=== PATIENT | male | born 1950 | race Caucasian/White ===

== ENCOUNTER 2016-12-31 22:26 | Observation (INO) | payer OTHER ==
[~2016-12-31] VITALS: Ht 170.2 cm; Wt 101.0 kg
[2016-12-31 22:28] VITALS: BP 172/80; PULSE 61; RESP 16; TEMP 97.7; O2SAT 99
[2016-12-31] MEDS ORDERED: ASPI-110 PO (22:53)
[2016-12-31] MEDS ORDERED: CHOL100025 CHEW (22:53)
[2016-12-31] MEDS ORDERED: LEXA10TA PO (22:53)
[2016-12-31] MEDS ORDERED: LOSA100T PO (22:53)
[2016-12-31] MEDS ORDERED: CARV3.12 PO (22:53)
[2016-12-31] MEDS ORDERED: FERR1TAB7 PO (22:53)
[2016-12-31 23:00] VITALS: BP 172/81; PULSE 48; RESP 18; O2SAT 95
[2016-12-31 23:01] VITALS: O2SAT 95
[2016-12-31 23:18] LABS: AUTOMATED NEUTROPHIL # 3.7 TH/MM3 (1.8-7.7); BASOPHIL % 0.7 % (0.0-2.0); EOSINOPHIL # 0.3 TH/MM3 (0-0.4); EOSINOPHIL % 4.1 % (0.0-4.0); HEMATOCRIT 39.9 % (39.0-51.0); HEMO FLAGS DIFF FINAL; LYMPH % 28.1 % (9.0-44.0); LYMPHOCYTE # 1.8 TH/MM3 (1.0-4.8); MEAN CELL VOLUME 87.8 FL (80.0-100.0); MONO % 10.3 % (0.0-8.0); NEUT % 56.8 % (16.0-70.0); PLATELET COUNT 168 TH/MM3 (150-450); RED BLOOD COUNT 4.54 MIL/MM3 (4.50-5.90); RED CELL DISTRIBUTION WIDTH 14.3 % (11.6-17.2); WHITE BLOOD COUNT 6.5 TH/MM3 (4.0-11.0)
[2016-12-31 23:23] LABS: APTT (PATIENT) 30.3 SEC (24.3-30.1); PROTHROMBIN TIME - PATIENT 10.6 SEC (9.8-11.6)
[2016-12-31 23:26] LABS: ANION GAP 8 MEQ/L (5-15); AST (GOT) 25 U/L (15-37); BICARBONATE 29.7 MEQ/L (21.0-32.0); BLOOD UREA NITROGEN 16 MG/DL (7-18); CHLORIDE 103 MEQ/L (98-107); GLOMERULAR FILTRATION RATE 47 ML/MIN (>89); SODIUM (NA) 141 MEQ/L (136-145)
[2016-12-31 23:29] LABS: ALKALINE PHOSPHATASE 65 U/L (45-117); ALT (GPT) 62 U/L (12-78); TOTAL BILIRUBIN ADULT 0.3 MG/DL (0.2-1.0)
--- NOTE | 2016-12-31 23:59 | PD ---
HPI Chief Complaint: Numbness/Tingling Time Seen by Provider: 22:41 Travel History International Travel<30 days: No Contact w/Intl Traveler<30days: No Traveled to known affect area: No History of Present Illness HPI Patient is a 66-year-old male who presents to emergency room with complaints of right-sided facial numbness, tingling as well as right-sided facial droop and right eye lid lag. Patient reports that he woke up this morning around 9:30AM with these symptoms. Reports that he has never had these symptoms in the past, denies history of CVA or TIA in the past. Patient reports that the symptoms persisted throughout the day, patient here for evaluation of his neurological symptoms. Patient denies any tick bites recently. Patient denies any vision changes, chest pain or shortness of breath. Patient denies any headaches or dizziness this time. PFSH Past Medical History Hx Anticoagulant Therapy: Yes (ASA) AAA: Yes Anxiety: Yes Cardiovascular Problems: Yes (AAA) Past Surgical History Genitourinary Surgery: Yes (right kidney removed - cancer) Social History Alcohol Use: No Tobacco Use: No Substance Use: No Allergies-Medications (Allergen,Severity, Reaction): Coded Allergies: No Known Allergies (Unverified , 12/31/16) Reported Meds & Prescriptions Reported Meds & Active Scripts Active Reported Iron (Ferrous Sulfate) 45 Mg Tab 45 Mg PO DAILY Aspirin 81 (Aspirin) 81 Mg Tabdr 81 Mg PO DAILY Vitamin D3 (Cholecalciferol) 1,000 Unit Chew 1,000 Units CHEW DAILY Lexapro (Escitalopram Oxalate) 10 Mg Tab 10 Mg PO DAILY Losartan (Losartan Potassium) 100 Mg Tab 100 Mg PO DAILY Carvedilol 3.125 Mg Tab 3.125 Mg PO BID Review of Systems General / Constitutional: No: Fever Eyes: No: Visual changes HENT: No: Headaches Cardiovascular: No: Chest Pain or Discomfort Respiratory: No: Shortness of Breath Gastrointestinal: No: Abdominal Pain Genitourinary: No: Dysuria Musculoskeletal: No: Pain Skin: No Rash Neurologic: Positive: Paresthesia, Sensory Disturbance, No: Weakness, Headache Psychiatric: No: Depression Endocrine: No: Polydipsia Hematologic/Lymphatic: No: Easy Bruising Physical Exam Narrative GENERAL: No acute distress, nontoxic SKIN: Warm and dry. HEAD: Atraumatic. Normocephalic. EYES: Pupils equal and round. No scleral icterus. No injection or drainage. Patient with right-sided lid lag, patient is able to close his eyelid ENT: No nasal bleeding or discharge. Mucous membranes pink and moist. Patient with a right-sided facial droop NECK: Trachea midline. No JVD. CARDIOVASCULAR: Regular rate and rhythm. No murmur appreciated. RESPIRATORY: No accessory muscle use. Clear to auscultation. Breath sounds equal bilaterally. GASTROINTESTINAL: Abdomen soft, non-tender, nondistended. Hepatic and splenic margins not palpable. MUSCULOSKELETAL: No obvious deformities. No clubbing. No cyanosis. No edema. NEUROLOGICAL: Awake and alert. Motor grossly within normal limits. Normal speech. Patient with right-sided facial droop, right-sided lid lag and right sided numbness to his face PSYCHIATRIC: Appropriate mood and affect; insight and judgment normal. Data Data Last Documented VS Vital Signs Date Time Temp Pulse Resp B/P Pulse Ox O2 Delivery O2 Flow Rate FiO2 12/31/16 23:01 95 Room Air 12/31/16 23:00 48 18 172/81 12/31/16 22:28 97.7 Orders Electrocardiogram (12/31/16 22:48) Prothrombin Time / Inr (Pt) (12/31/16 22:48) Act Partial Throm Time (Ptt) (12/31/16 22:48) Complete Blood Count With Diff (12/31/16 22:48) Comprehensive Metabolic Panel (12/31/16 22:48) Ct Brain W/O Iv Contrast(Rout) (12/31/16 22:48) Iv Access Insert/Monitor (12/31/16 22:48) Ecg Monitoring (12/31/16 22:48) Oximetry (12/31/16 22:48) Lyme Disease Pcr (01/01/17 00:15) Aspirin (Aspirin) (01/01/17 01:00) Labs Laboratory Tests Test 12/31/16 23:00 White Blood Count 6.5 TH/MM3 Red Blood Count 4.54 MIL/MM3 Hemoglobin 13.2 GM/DL Hematocrit 39.9 % Mean Corpuscular Volume 87.8 FL Mean Corpuscular Hemoglobin 29.0 PG Mean Corpuscular Hemoglobin 33.0 % Concent Red Cell Distribution Width 14.3 % Platelet Count 168 TH/MM3 Mean Platelet Volume 9.0 FL Neutrophils (%) (Auto) 56.8 % Lymphocytes (%) (Auto) 28.1 % Monocytes (%) (Auto) 10.3 % Eosinophils (%) (Auto) 4.1 % Basophils (%) (Auto) 0.7 % Neutrophils # (Auto) 3.7 TH/MM3 Lymphocytes # (Auto) 1.8 TH/MM3 Monocytes # (Auto) 0.7 TH/MM3 Eosinophils # (Auto) 0.3 TH/MM3 Basophils # (Auto) 0.0 TH/MM3 CBC Comment DIFF FINAL Differential Comment Prothrombin Time 10.6 SEC Prothromb Time International 1.0 RATIO Ratio Activated Partial 30.3 SEC Thromboplast Time Sodium Level 141 MEQ/L Potassium Level 4.0 MEQ/L Chloride Level 103 MEQ/L Carbon Dioxide Level 29.7 MEQ/L Anion Gap 8 MEQ/L Blood Urea Nitrogen 16 MG/DL Creatinine 1.49 MG/DL Estimat Glomerular Filtration 47 ML/MIN Rate Random Glucose 95 MG/DL Calcium Level 8.9 MG/DL Total Bilirubin 0.3 MG/DL Aspartate Amino Transf 25 U/L (AST/SGOT) Alanine Aminotransferase 62 U/L (ALT/SGPT) Alkaline Phosphatase 65 U/L Total Protein 7.0 GM/DL Albumin 3.5 GM/DL MDM Medical Decision Making Medical Screen Exam Complete: Yes Emergency Medical Condition: Yes Interpretation(s) EKG at 2242: Sinus bradycardia at 49 bpm, QT/QTc 423/393, first-degree AV block , no acute ST-T wave changes Vital Signs Date Time Temp Pulse Resp B/P Pulse Ox O2 Delivery O2 Flow Rate FiO2 12/31/16 23:01 95 Room Air 12/31/16 23:00 48 18 172/81 95 Room Air 12/31/16 22:47 95 Room Air 12/31/16 22:28 97.7 61 16 172/80 99 Room Air Differential Diagnosis CVA, Rivas's palsy, intracranial hemorrhage Narrative Course Patient is a 66-year-old male who presents to emergency room with complaints of right-sided facial droop, right-sided lip leg and right sided facial numbness which he noticed upon waking up this morning around 9:30 AM. Patient reports that his symptoms have not improved but the daytime, patient concerned for possible CVA. The head ordered, labs ordered, EKG ordered. Patient was placed on a protective signal superintendent. Patient is having no problems recalling the right side of his forehead, no problems racing his right eyebrow, patient does have some right-sided lid lag and right-sided facial droop -the symptoms could be secondary to Rivas's palsy versus CVA. Plan to obs for repeat neuro exams case reviewed with dr bermudez who accepts pt to service Diagnosis Primary Impression: cva vs bells palsy Admitting Information Admitting Physician Requests: Observation Tasha Bruno DO Dec 31, 2016 23:59
--- NOTE | 2017-01-01 00:37 | RADRPT ---
EXAM DATE/TIME: 01/01/2017 00:07 [facility] COMPARISON: No previous studies available for comparison. INDICATIONS : Cephalgia with pain all over body. Evaluate cerebrovascular accident. RADIATION DOSE: 56.35 CTDIvol (mGy) MEDICAL HISTORY : Cardiovascular disease. SURGICAL HISTORY : None. ENCOUNTER: Initial ACUITY: 1 day PAIN SCALE: 5/10 LOCATION: cranial TECHNIQUE: Multiple contiguous axial images were obtained of the head. Using automated exposure control and adj ustment of the mA and/or kV according to patient size, radiation dose was kept as low as reasonably a chievable to obtain optimal diagnostic quality images. FINDINGS: CEREBRUM: The ventricles are normal for age. No evidence of midline shift, mass lesion, hemorrhage or acute in farction. No extra-axial fluid collections are seen. POSTERIOR FOSSA: The cerebellum and brainstem are intact. The 4th ventricle is midline. The cerebellopontine angle i s unremarkable. EXTRACRANIAL: The visualized portion of the orbits is intact. SKULL: The calvaria is intact. No evidence of skull fracture. CONCLUSION: Normal examination for a patient of this age. Asim Ross MD on January 01, 2017 at 0:34 Board Certified Radiologist. This report was verified electronically.
[2017-01-01] MEDS ORDERED: ASPIRIN 325 MG TAB PO ONE (01:00)
[2017-01-01] MEDS ORDERED: SODIUM CHLORIDE 0.9% FLUSH 5 ML FLUSH IVF PRN (01:15)
[2017-01-01] MEDS ORDERED: DEXTROSE 50% IN WATER 50 ML VIAL(D50) IV PUSH PRN (01:15)
[2017-01-01] MEDS ORDERED: GLUCAGON 1 MG/ML VIAL IM/SQ PRN (01:15)
[2017-01-01] MEDS ORDERED: predniSONE 20 MG TAB PO ONE (01:15)
[2017-01-01 03:24] VITALS: BP 131/68; PULSE 51; TEMP 98.1; O2SAT 93
[2017-01-01 03:59] VITALS: PULSE 61
[2017-01-01 07:50] VITALS: O2SAT 95
[2017-01-01 08:14] VITALS: BP 132/81; PULSE 54; RESP 20; TEMP 97; O2SAT 65
[2017-01-01 08:24] VITALS: PULSE 49
[2017-01-01] MEDS ORDERED: ENOXAPARIN SODIUM 40 MG/0.4 ML SYRINGE SQ SCH (09:00)
[2017-01-01] MEDS ORDERED: ESCITALOPRAM OXALATE 10 MG TAB PO SCH (09:00)
[2017-01-01] MEDS ORDERED: SODIUM CHLORIDE 0.9% FLUSH 5 ML FLUSH IVF SCH (09:00)
[2017-01-01] MEDS ORDERED: ASPIRIN EC 81 MG TABEC PO SCH ×2 (09:00)
--- NOTE | 2017-01-01 09:05 | HHI.HP ---
[facility] Non[facility]Staff Admission Diagnosis CVA vs Rivas's Palsy Diagnoses: Chief Complaint: right facial paresthesia/droop Travel History International Travel<30 Days: No Contact w/Intl Traveler <30 Da: No Traveled to Known Affected Are: No History of Present Illness 58-year-old male with history of chronic thoracic aortic aneurysm, hypertension , depression, prior right nephrectomy, presents with acute onset of right facial droop/numbness yesterday morning 12/31 at 9:30 AM. The patient states he has been in his normal state of health. Denies any recent headache, lightheadedness, dizziness, fever/chills,cough, sore throat, chest pain, shortness breath, or abdominal complaints.yesterday morning he noticed his entire right side of the face felt numb and tingling, then noticed he was unable to raise his right eyebrow and his smile is uneven. Denies any paresthesias or weakness of the extremities. He was able to ambulate without difficulty.this has never happened before. He denies any recent insect bites. He does have a history of herpes zoster of the forehead 10+ years ago. His son currently has shingles however he has not had contact with him recently. The patient also did have some right sided dental work done in November 2016, with dental extraction secondary to crown failure, but denies any infection. Since the patient's arrival to the ER, head CT was unremarkable, right sided facial numbness/tingling improved however still with right sided facial droop. Review of Systems Except as stated in HPI: all other systems reviewed are Neg Past Family Social History Past Medical History Thoracic aortic aneurysm ~4cm, stable over the past 6 years Hypertension Depression Herpes Zoster of the face 10+years ago Past Surgical History Right nephrectomy secondary to localized cancer, removed 3 or 4 years ago Right biceps rupture s/p repair 2016 Dental extraction Nov 2016 Reported Medications Iron (Ferrous Sulfate) 45 Mg Tab 45 Mg PO DAILY Aspirin 81 (Aspirin) 81 Mg Tabdr 81 Mg PO DAILY Vitamin D3 (Cholecalciferol) 1,000 Unit Chew 1,000 Units CHEW DAILY Lexapro (Escitalopram Oxalate) 10 Mg Tab 10 Mg PO DAILY Losartan (Losartan Potassium) 100 Mg Tab 100 Mg PO DAILY Carvedilol 3.125 Mg Tab 3.125 Mg PO BID Allergies: Coded Allergies: No Known Allergies (Unverified , 12/31/16) Active Ordered Medications Current Medications Medications (Trade) Dose Ordered Sig/Hamlet Route Start Time Stop Time Status Last Admin (NS Flush) 2 ml BID IVF 01/01/17 09:00 01/01/17 01:27 (NS Flush) 2 ml UNSCH PRN IVF 01/01/17 01:15 (D50w (Vial) Inj) 25 ml UNSCH PRN IV PUSH 01/01/17 01:15 (Glucagon Inj) 1 mg UNSCH PRN IM/SQ 01/01/17 01:15 (Lovenox Inj) 40 mg Q24H SQ 01/01/17 09:00 (Lexapro) 10 mg DAILY PO 01/01/17 09:00 (Ecotrin Ec) 325 mg DAILY PO 01/01/17 09:00 Family History Mother fairly healthy, alive, age 88 Father with kidney cancer, thoracic aneurysm Siblings fairly healthy Denies any significant family history of stroke, diabetes, or heart disease Social History Prior tobacco use, quit in the early 30s Drinks occasional beer, maybe 1-2x per month Denies any illicit drug use Physical Exam Vital Signs Vital Signs Date Time Temp Pulse Resp B/P Pulse Ox O2 Delivery O2 Flow Rate FiO2 01/01/17 08:14 97.0 54 20 132/81 65 01/01/17 07:50 95 21 01/01/17 03:59 61 01/01/17 03:24 98.1 51 131/68 93 12/31/16 23:01 95 Room Air 12/31/16 23:00 48 18 172/81 95 Room Air 12/31/16 22:47 95 Room Air 12/31/16 22:28 97.7 61 16 172/80 99 Room Air Physical Exam GENERAL: Well-nourished, well-developed pleasant male patient in NAD. SKIN: Warm and dry. No rash. HEAD: Normocephalic. Atraumatic. EYES: Pupils equal and round. No scleral icterus. No injection or drainage. ENT: No nasal bleeding or discharge. Mucous membranes pink and moist. NECK: Supple. Trachea midline. CARDIOVASCULAR: Regular rate and rhythm. S1, S2 noted. No murmur appreciated. RESPIRATORY: No accessory muscle use. Clear to auscultation. Breath sounds equal bilaterally. GASTROINTESTINAL: Abdomen soft, non-tender, nondistended. Normoactive bowel sounds x4. MUSCULOSKELETAL: No obvious deformities. Extremities without clubbing, cyanosis , or edema. NEUROLOGICAL: Awake and alert. No obvious cranial nerve deficits. Motor grossly within normal limits. 5/5 muscle strength in bilateral upper and lower extremities. Normal speech. Right sided facial droop, unable to raise right eyebrow, difficulty closing right eye tightly, unable to puff cheeks on the right, flattening of the right nasolabial fold. Facial sensation equal and intact. No tongue deviation. PSYCHIATRIC: Appropriate mood and affect; insight and judgment normal. Laboratory Laboratory Tests Test 12/31/16 23:00 White Blood Count 6.5 Red Blood Count 4.54 Hemoglobin 13.2 Hematocrit 39.9 Mean Corpuscular Volume 87.8 Mean Corpuscular Hemoglobin 29.0 Mean Corpuscular Hemoglobin 33.0 Concent Red Cell Distribution Width 14.3 Platelet Count 168 Mean Platelet Volume 9.0 Neutrophils (%) (Auto) 56.8 Lymphocytes (%) (Auto) 28.1 Monocytes (%) (Auto) 10.3 Eosinophils (%) (Auto) 4.1 Basophils (%) (Auto) 0.7 Neutrophils # (Auto) 3.7 Lymphocytes # (Auto) 1.8 Monocytes # (Auto) 0.7 Eosinophils # (Auto) 0.3 Basophils # (Auto) 0.0 CBC Comment DIFF FINAL Differential Comment Prothrombin Time 10.6 Prothromb Time International 1.0 Ratio Activated Partial 30.3 Thromboplast Time Sodium Level 141 Potassium Level 4.0 Chloride Level 103 Carbon Dioxide Level 29.7 Anion Gap 8 Blood Urea Nitrogen 16 Creatinine 1.49 Estimat Glomerular Filtration 47 Rate Random Glucose 95 Calcium Level 8.9 Total Bilirubin 0.3 Aspartate Amino Transf 25 (AST/SGOT) Alanine Aminotransferase 62 (ALT/SGPT) Alkaline Phosphatase 65 Total Protein 7.0 Albumin 3.5 Result Diagram: 12/31/16 2300 12/31/16 230 Imaging Last Impressions Head CT 12/31/16 [id number] Signed Impressions: Service Date/Time: Sunday, January 01, 2017 00:07 - CONCLUSION: Normal examination for a patient of this age. Asim Ross MD Assessment and Plan Assessment and Plan 58-year-old male with history of chronic thoracic aortic aneurysm, hypertension , depression, prior right nephrectomy, presents with acute onset of right facial droop/numbness yesterday morning 12/31 at 9:30 AM. Right Facial Paralysis: suspect Rivas's Palsy, however rule out TIA/CVA. Head CT images reviewed, unremarkable. Check lyme PCR. Brain MRI images reviewed with no acute findings. Carotid U/S normal. Echocardiogram normal, EF 60-65%. Increased patient's aspirin from 81mg to 325mg daily for now. NIHSS, neuro checks. Monitor on telemetry. PT/OT/ST. Passed nursing bedside swallow eval, advanced diet. Consult Rehab Medicine and Neurology. Hypertension: chronic, held patient's Losartan and Coreg until MRI negative. Allow permissive hypertension for now. Monitor BP. OSIRIS: Cr 1.49, no previous labs to compare. S/p right nephrectomy. Holding losartan as above. Give gentle IVF with NS 500ml x1 bag. Repeat BMP tomorrow. Chronic Thoracic Aortic Aneurysm: stable at 4cm per patient. No complaints of chest pain. Control BP once CVA ruled out. Depression: chronic, continue patient's lexapro. DVT Prophylaxis: Lovenox Discussed with Dr. Jaquez. Discharge Planninhrs: Patient seen by Dr. 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 Cleared for discharge by neurology. Discharge patient to home Condition on discharge: Improved Heart Healthy Diet as tolerated Ad Gloria activity Rx written: Prednisone, Acyclovir Follow-up with primary care physician in 2-3 days and Neurology in 2 weeks Discussed Condition With Patient, Patient's , Marybeth Day RN, PA-C Jan 01, 2017 9:05 am
[2017-01-01] MEDS ORDERED: SODIUM CHLORID 0.9% 500 ML INJ 500 ML IV SCH (11:15)
[2017-01-01 11:24] VITALS: BP 141/69; PULSE 60; RESP 16; TEMP 97.9; O2SAT 96
--- NOTE | 2017-01-01 11:44 | RADRPT ---
EXAM DATE/TIME: 01/01/2017 09:50 [facility] COMPARISON: No previous studies available for comparison. INDICATIONS : Transient ischemic attack. MEDICAL HISTORY : Aneurysm, abdominal. Arthritis. Right renal cancer. Sleep apnea. SURGICAL HISTORY : Left leg surgery. Right arm surgery. ENCOUNTER: Initial ACUITY: 1 day PAIN SCORE: 0/10 LOCATION: Bilateral neck PEAK SYSTOLIC VELOCITIES (cm/sec): ICA/CCA RATIO: Right: 0.9 Left: 0.7 ICA: Right: 65 Left: 67 CCA: Right: 76 Left: 91 ECA: Right: 73 Left: 117 VERTEBRAL: Right: 37 antegrade Left: 41 antegrade Elevated flow velocities and ICA/CCA ratios have been found to correlate with increased degrees of vessel stenosis, calculated as percentage of diameter relative to a normal segment of distal ICA/CCA FINDINGS: RIGHT CAROTID: No significant stenosis is visualized. The waveforms are within normal limits. LEFT CAROTID: No significant stenosis is visualized. The waveforms are within normal limits. VERTEBRAL ARTERIES: Antegrade flow is seen in both vertebral arteries. MISCELLANEOUS: None. CONCLUSION: Normal examination. Homero Malloy MD on January 01, 2017 at 11:41 Board Certified Radiologist. This report was verified electronically.
--- NOTE | 2017-01-01 11:50 | RADRPT ---
EXAM DATE/TIME: 01/01/2017 11:00 [facility] COMPARISON: No previous studies available for comparison. INDICATIONS : Right sided numbness. MEDICAL HISTORY : Hypertension. Aneurysm, abdominal. SURGICAL HISTORY : Nephrectomy, right. Rt arm and leg surgery ENCOUNTER: Subsequent ACUITY: 2 day PAIN SCORE: 0/10 LOCATION: cranial TECHNIQUE: Multiplanar, multisequence MRI of the brain was performed without contrast. FINDINGS: CEREBRUM: The ventricles are normal for age. No evidence of midline shift, mass lesion, hemorrhage or acute in farction. No extraaxial fluid collections are seen. The pituitary gland and suprasellar cistern are normal in configuration. WHITE MATTER: Small scattered signal abnormalities are seen in the white matter. POSTERIOR FOSSA: Increased T2 hyperintensity is identified in the brainstem predominantly within the midbrain and matty . Cerebellum is unremarkable. The 4th ventricle is midline. The cerebellopontine angle is unremarkab le. The cerebellar tonsils are normal in position. DIFFUSION IMAGING: No focal areas of restricted diffusion are seen. No evidence of acute infarction. EXTRACRANIAL: The visualized portions of the orbits and paranasal sinuses are unremarkable. CONCLUSION: White matter and brainstem T2 hyperintense changes consistent with mild chronic small vessel disease. No evidence of acute infarct, hemorrhage, mass or edema. Homero Malloy MD on January 01, 2017 at 11:46 Board Certified Radiologist. This report was verified electronically.
[2017-01-01 13:54] LABS: HEMOGLOBIN A1a 0.9 %; HEMOGLOBIN A1b 1.5 %; HEMOGLOBIN Ao 85.9 %; HEMOGLOBIN LA1C 1.7 %; HEMOGLOBIN P3 3.7 %
--- NOTE | 2017-01-01 15:21 | EC ---
Study Study Date:01/01/2017 STUDY CONCLUSIONS SUMMARY - Left ventricle: The cavity size was normal. Wall thickness was normal. Systolic function was normal. The estimated ejection fraction was in the range of 60% to 65%. Wall motion was normal; there were no regional wall motion abnormalities. - Mitral valve: Valve area by pressure half-time: 2.42cm^2. Impressions: No cardiac source of emboli was indentified. If LV function is below 40, please consider prescribing an ACEI or ARB or document rationale for non-use. PROCEDURE DATA STUDY STATUS: Elective. Procedure: Transthoracic echocardiography. Image quality was good. Scanning was performed from the parasternal, apical, and subcostal acoustic windows. Study completion: The patient tolerated the procedure well. Transthoracic echocardiography. M-mode, complete 2D, complete spectral Doppler, and color Doppler. Height: Height: 67in. Weight: Weight: 221.5lb. Body mass index: BMI: 34.8kg/m^2. Body surface area: BSA: 2.11m^2. Patient status: Inpatient. CARDIAC ANATOMY LEFT VENTRICLE: The cavity size was normal. Wall thickness was normal. Systolic function was normal. The estimated ejection fraction was in the range of 60% to 65%. Wall motion was normal; there were no regional wall motion abnormalities. AORTIC VALVE: Trileaflet; normal thickness leaflets. Doppler: Transvalvular velocity was within the normal range. There was no stenosis. No regurgitation. AORTA: Aortic root: The aortic root was normal in size. MITRAL VALVE: Structurally normal valve. Doppler: Transvalvular velocity was within the normal range. There was no evidence for stenosis. No regurgitation. Valve area by pressure half-time: 2.42cm^2. Indexed valve area by pressure half-time: 1.15cm^2/m^2. LEFT ATRIUM: The atrium was normal in size. RIGHT VENTRICLE: The cavity size was normal. Wall thickness was normal. PULMONIC VALVE: Doppler: Transvalvular velocity was within the normal range. There was no evidence for stenosis. No regurgitation. TRICUSPID VALVE: Structurally normal valve. Doppler: Transvalvular velocity was within the normal range. Trace regurgitation. Peak gradient: 23mm Hg (D). PULMONARY ARTERY: The main pulmonary artery was normal-sized. Systolic pressure was within the normal range. RIGHT ATRIUM: The atrium was normal in size. PERICARDIUM: There was no pericardial effusion. SYSTEMIC VEINS: Inferior vena cava: The vessel was normal in size. Patient weight: 221.5lb _Ejection fraction:_ 65-75% _Fractional shortening:_ 32% up to 5Kg 5-11.5Kg 11.6-22.9Kg 23-45Kg 45-57Kg Aortic Root 7-13 <17 13-22 17-27 17-27 LA diam 6-13 <23 24-38 33-47 37-40 RVID 10-17 7-15 7-15 7-18 8-17 LVIDd 12-22 <32 24-38 33-47 37-40 LVPW 2-4 3-6 5-7 6-8 7-8 IVS 2-4 3-6 5-7 6-8 7-8 BASIC MEASUREMENTS ADULT NORMAL Left ventricle LV internal dimension, ED, chordal 51.7 mm 43-52 level, PLAX LV internal dimension, ES, chordal 35.9 mm 23-38 level, PLAX Fractional shortening, chordal level, 31 % >29 PLAX LV posterior wall thickness, ED 12.5 mm IVS/LVPW ratio, ED 1.04 <1.3 Ventricular septum Septal thickness, ED 13 mm Aortic valve Leaflet separation 24 mm 15-26 Left atrium Anterior-posterior dimension 39 mm Anterior-posterior dimension index 1.85 cm/m^2 <2.2 Right ventricle RV internal dimension, ED, PLAX 30.1 mm 19-38 BASIC MEASUREMENTS ADULT NORMAL Aortic valve Leaflet separation 24 mm 15-26 Aorta Root diameter, ED 36 mm 20-37 DOPPLER MEASUREMENTS ADULT NORMAL Aortic valve Peak velocity, S 128 cm/s Mitral valve Peak E-wave velocity 57.8 cm/s Peak A-wave velocity 74 cm/s Pressure half-time 91 ms Peak E/A ratio 0.8 Valve area, pressure half-time 2.42 cm^2 Valve area index, pressure half-time 1.15 cm^2/m^2 Tricuspid valve Peak gradient, D 23 mm Hg Maximal inflow velocity 239 cm/s Systemic veins Estimated CVP 10 mm Hg Pulmonic valve Peak velocity, S 86.9 cm/s LEGEND: Mean values are shown as u=mean value. Asterisk (*) avila values outside specified normal range. Prepared and signed by Ángel Guerra [id number]
--- NOTE | 2017-01-01 15:39 | EKG ---
Date Performed: 12/31/2016 Time Performed: 22:42:50 PTAGE: 66 years EKG: SINUS BRADYCARDIA WITH FIRST DEGREE AV BLOCK SEPTAL MYOCARDIAL INFARCTION ABNORMAL ECG NO PREVIOUS TRACING DOCTOR: Chrissy Roblero Interpretating Date/Time 01/01/2017 15:38:07
[2017-01-01] MEDS ORDERED: PRED20 PO (15:47)
[2017-01-01] MEDS ORDERED: ACYC400T PO (15:47)
--- NOTE | 2017-01-01 15:48 | HHI.DCPOC ---
Discharge Care Plan Diagnosis: (1) Rivas's palsy (2) HTN (hypertension) Goals to Promote Your Health * To prevent worsening of your condition and complications * To maintain your health at the optimal level Directions to Meet Your Goals Take your medications as prescribed Follow your dietary instruction Follow activity as directed Keep your appointments as scheduled Take your immunizations and boosters as scheduled If your symptoms worsen call your PCP, if no PCP go to Urgent Care Center or Emergency Room Smoking is Dangerous to Your Health. Avoid second hand smoke Call the 24-hour hour crisis hotline for domestic abuse at Marybeth Bauer PA-C Jan 01, 2017 3:48 pm
--- NOTE | 2017-01-01 15:55 | MB ---
cc: KIMBERLY TRUJILLO MD DATE OF CONSULTATION: 01/01/2017. REASON FOR CONSULTATION: Right facial weakness, questionable stroke. HISTORY OF PRESENT ILLNESS: Mr. Britton is a 58-year-old male with past medical history of chronic thoracic aortic aneurysm, hypertension, depression, right nephrectomy who presented to the [facility] with an acute onset of right facial weakness and numbness. The patient states that over the last two days he felt that his right side of the face and lip became numb. He had abnormal taste sensation and infrequent earache on the right side and the following day there was injection in the eye and tearing and he was not able to close his eyes. The patient denies headache, double vision, blurred vision, speech difficulty, upper or lower limb weakness, dizziness, disorientation or convulsion. the patient denies any history of a similar condition. The patient denies any history of head injury, TIA or stroke. Of note, his son currently has shingles; however, he has not had contact with him. REVIEW OF SYSTEMS: A twelve-point review of systems was negative except as stated in the history of present illness. PAST MEDICAL HISTORY: 1. Thoracic aortic aneurysm, stable, diagnosed six years ago. 2. Hypertension. 3. Depression. 4. Herpes zoster of the face ten years ago. PAST SURGICAL HISTORY: 1. Right nephrectomy status post cancer in 2012. 2. Right biceps rupture status post repair in 2015. 3. Dental extraction November of 2016. MEDICATIONS: 1. Aspirin 81. 2. Iron. 3. Vitamin D3. 4. Lexapro. 5. Losartan. 6. Carvedilol. ALLERGIES: NO KNOWN ALLERGIES. FAMILY HISTORY: Noncontributory. SOCIAL HISTORY: Quit tobacco more than thirty years ago. Drinks beer occasionally, one or two per month. Denies illicit drug abuse. PHYSICAL EXAMINATION: GENERAL: Overweight, pleasant, good historian in no acute distress. HEAD, EYES, EARS, NOSE, THROAT: Normocephalic and atraumatic with right-sided facial weakness. NECK: The neck is supple. No carotid bruits. No signs of meningeal irritation. RESPIRATORY: Clear to auscultation. No wheezing. CARDIOVASCULAR: Regular rate and rhythm. MUSCULOSKELETAL: No obvious deformities. Moves all extremities equally. NEUROLOGICAL EXAMINATION: MENTAL STATUS: Awake, alert and oriented to time, person and place. Intact speech. Intact memory. No dysphasia. No dysarthria. CRANIAL NERVES: Right-sided lower motor neuron facial palsy with decreased wrinkling of the right forehead, unable to close his right eye fully, weak orbicularis oculi on the right side. Nasolabial fold flattening. No facial numbness. Unable to hold air in the right buccinator and unable to keep his lips tightly pursed on the right side.Intact ocular motility. Pupils are equal, b/l reacting. Intact hearing. MOTOR SYSTEM: 5/5 bilateral and symmetrical, no abnormal movements. SENSORY: Intact bilaterally and symmetrical. REFLEXES: 2+ bilateral and symmetrical. The plantars are bilateral downgoing. CEREBELLAR: Intact [id number] and [id number] bilateral symmetrical. PSYCHIATRIC: Appropriate mood and affect, insight and judgment are normal. No hallucinations. DIAGNOSTIC IMAGING: - Head CT scan without contrast was normal with no acute intracranial abnormality. - MRI brain without contrast with white matter and raised T2 hyperintense changes consistent with mild chronic small vessel disease. No evidence of acute infarction, hemorrhage, mass or edema. - Carotid ultrasound was reported as a normal examination. DIAGNOSTIC IMPRESSION: 1. Right Rivas's palsy / lower motor neuron facial palsy. 2. No evidence on brain imaging of acoustic neuroma or Schwannoma in the CP angle and no evidence of any acute abnormality. PLAN: 1. Prednisone 60 milligrams daily for one week. 2. Acyclovir 1000 milligrams daily in divided doses for one week. 3. I advised the patient to wear an eye patch and use eye drops. 4. The patient is from [place] and they will travel in a two days time, hence , I recommend that the patient followup with his primary care physician or neurologist in his hometown after the completion of the dose. Thank you for the opportunity to participate in the care of your patient. MD ELSA Salomon/JAZ /3:13 PM /3:27 PM KIM
== END 2017-01-01 17:26 | disposition home or self-care (01) ==
LOC: NEPC 22:26 → NEDA 01-01 01:07 → NEPGCP 01-01 02:55
PROVIDERS: ADMIT Hospitalist; ATTEND Hospitalist
DX: G51.0 Bell's palsy (principal); I71.2 Thoracic aortic aneurysm, without rupture; I10 Essential (primary) hypertension; E66.3 Overweight; F32.9 Major depressive disorder, single episode, unspecified; Z68.34 Body mass index [BMI] 34.0-34.9, adult; F41.9 Anxiety disorder, unspecified; Z90.5 Acquired absence of kidney; Z87.891 Personal history of nicotine dependence; Z85.528 Personal history of other malignant neoplasm of kidney; Z79.01 Long term (current) use of anticoagulants; Z79.82 Long term (current) use of aspirin
CPT/HCPCS: 70450; 70551; 80053; 82948; 83036; 85025; 85610; 85730; 87801; 93005; 93306; 93880; 97163; 97166; 99285; G0378; G8987; G8988; G8989; J1650; J7040; J7512